=== PATIENT | male | born 1940 | race Hispanic/Latino ===

== ENCOUNTER 2017-07-20 20:31 | Emergency (ER) | payer MEDICARE ==
[2017-07-20 20:35] VITALS: BMI 22.4
[2017-07-20 20:41] VITALS: RESP 18; TEMP 97.9
--- NOTE | 2017-07-20 20:42 | ED PDOC ---
Arrival/HPI - General Historian: Patient <Johnny Huerta - Last Filed: 07/20/17 21:16> <Андрей Calero - Last Filed: 07/20/17 21:33> - General Chief Complaint: Foreign Body Time Seen by Provider: 07/20/17 20:42 - History of Present Illness Narrative History of Present Illness (Text): 07/20/17 20:42 76 y/o male, pmh including htn/cad/copd, allergic to sulfa, c/o silicone hearing aid stuck inside the lt. ear about 2 hours ago. Pt. stated that he chronically wears hearing aid, try to take off the hearing aid tonight, noticed the the silicone piece is inside the lt. auditory canal and request to have it removed, no dizziness or headache, no night sweat, no rash, no other medical or psychological complaints. (Johnny Huerta) Past Medical History - Provider Review Nursing Documentation Reviewed: Yes - Infectious Disease Hx of Infectious Diseases: None - Tetanus Immunization Tetanus Immunization: Unknown - Cardiac Hx Cardiac Arrhythmia: Yes Hx Congestive Heart Failure: Yes Hx Hypertension: Yes Hx Peripheral Edema: Yes - Pulmonary Hx Bronchitis: Yes Hx Chronic Obstructive Pulmonary Disease (COPD): Yes - Neurological Hx Neurological Disorder: Yes (SYNCOPE) Hx Dizziness: Yes Other/Comment: S/P FALL @N HOME 06/14/13 - HEENT Hx HEENT Disorder: Yes Hx Cataracts: Yes Hx Deafness: Yes Hx Glaucoma: Yes - Renal Hx Renal Disorder: No - Hematological/Oncological Hx Anemia: Yes - Musculoskeletal/Rheumatological Hx Musculoskeletal Disorders: Yes Hx Falls: Yes Hx Unsteady Gait: Yes - Gastrointestinal Hx Gastrointestinal Disorders: No - Genitourinary/Gynecological Hx Genitourinary Disorders: No - Psychiatric Hx Depression: Yes Hx Substance Use: No - Past Surgical History Past Surgical History: Unable to Obtain - Surgical History Hx Cardiac Catheterization: Yes Hx Coronary Stent: Yes (X2) - Anesthesia Hx Anesthesia Reactions: No Hx Malignant Hyperthermia: No - Suicidal Assessment Feels Threatened In Home Enviroment: No <Johnny Huerta - Last Filed: 07/20/17 21:16> Family/Social History - Physician Review Nursing Documentation Reviewed: Yes Family/Social History: Unknown Family HX Smoking Status: Current Some Days Smoker Hx Alcohol Use: Yes (STOPPED) Hx Substance Use: No Hx Substance Use Treatment: No <Johnny Huerta - Last Filed: 07/20/17 21:16> Allergies/Home Meds <Johnny Huerta Tata - Last Filed: 07/20/17 21:16> <Андрей Calero - Last Filed: 07/20/17 21:33> Allergies/Adverse Reactions: Allergies Sulfa (Sulfonamide Antibiotics) Allergy (Verified 07/20/17 20:34) ANAPHYLAXIS Home Medications: Home Meds Medication Instructions Recorded Confirmed Aspirin [Aspir 81] 81 mg PO DAILY 06/14/13 07/20/17 Amlodipine Besylate [Norvasc] 5 mg PO BID 06/19/13 07/20/17 Tiotropium [Spiriva] 18 mcg IH DAILY 06/19/13 07/20/17 Valsartan [Diovan] 320 mg PO DAILY 06/19/13 07/20/17 Timolol 0.5% Ophth [Timoptic 0.5% 1 drop OU BID 07/12/13 07/20/17 Ophth Soln] Review of Systems - Review of Systems Constitutional: absent: Fatigue, Fevers Eyes: absent: Vision Changes ENT: Other (Lt. ear foreign body). absent: Hearing Changes Respiratory: absent: SOB, Cough Cardiovascular: absent: Chest Pain Gastrointestinal: absent: Abdominal Pain, Nausea, Vomiting Musculoskeletal: absent: Arthralgias, Back Pain, Neck Pain Neurological: absent: Headache, Dizziness Psychiatric: absent: Anxiety, Depression <Johnny Huerta Tata - Last Filed: 07/20/17 21:16> Physical Exam Vital Signs Reviewed: Yes Temperature: Afebrile Pulse: Regular Respiratory Rate: Normal Appearance: Positive for: Well-Appearing, Non-Toxic, Comfortable Pain Distress: None Mental Status: Positive for: Alert and Oriented X 3 - Systems Exam Head: Present: Atraumatic, Normocephalic Pupils: Present: PERRL Extroacular Muscles: Present: EOMI Conjunctiva: Present: Normal Ears: Present: Other (Ears: lt. ear auditory canal noted to have white silicone hearing aid piece noted, no mastoid tenderness. ) Mouth: Present: Moist Mucous Membranes Neck: Present: Normal Range of Motion Respiratory/Chest: Present: Clear to Auscultation, Good Air Exchange. No: Respiratory Distress, Accessory Muscle Use Cardiovascular: Present: Regular Rate and Rhythm, Normal S1, S2. No: Murmurs Abdomen: Present: Normal Bowel Sounds. No: Tenderness, Distention, Peritoneal Signs Back: Present: Normal Inspection Upper Extremity: Present: Normal Inspection. No: Cyanosis, Edema Lower Extremity: Present: Normal Inspection. No: Edema Neurological: Present: GCS=15, Speech Normal, Motor Func Grossly Intact, Gait Normal, Memory Normal Skin: Present: Warm, Dry, Normal Color. No: Rashes Psychiatric: Present: Alert, Oriented x 3, Normal Insight, Normal Concentration <Johnny Huerta - Last Filed: 07/20/17 21:16> Vital Signs Temp Pulse Resp BP Pulse Ox 07/20/17 21:11 70 18 149/71 97 07/20/17 20:31 97.9 F 72 18 157/7 H 96 Medical Decision Making <Johnny Huerta - Last Filed: 07/20/17 21:16> <Андрей Calero - Last Filed: 07/20/17 21:33> ED Course and Treatment: 07/20/17 20:56 -Under the direct otoscope, I removed the white piece hearing aid silicone with the needle vegetable picker. I reexamined and no visible foreign bodies remaining. -I reexamined the both ear and show the following: Ears: bilateral TMs georgiana color and intact, bilateral auditory canals non erythematous and no abrasion, no mastoid tenderness, no visible foreign bodies, hearing grossly intact and equal. -Discharge home with education on follow up with your own pmd and ENT within 2 days, return to the ER for any new or worsening signs or symptoms. (Johnny Huerta) - PA / MANAGER ENVIRONMENTAL SERVICES / Resident Statement LILIANA has reviewed & agrees with the documentation as recorded. <Johnny Huerta - Last Filed: 07/20/17 21:16> - PA / MANAGER ENVIRONMENTAL SERVICES / Resident Statement LILIANA has reviewed & agrees with the documentation as recorded. LILIANA has examined the patient and agrees with the treatment plan. <Андрей Calero - Last Filed: 07/20/17 21:33> Disposition/Present on Arrival - Present on Arrival Any Indicators Present on Arrival: Yes History of DVT/PE: No History of Uncontrolled Diabetes: No Urinary Catheter: No History of Decub. Ulcer: No History Surgical Site Infection Following: None - Disposition Have Diagnosis and Disposition been Completed?: Yes Disposition Time: 21:01 Patient Plan: Discharge <Johnny Huerta - Last Filed: 07/20/17 21:16> <Андрей Calero - Last Filed: 07/20/17 21:33> - Disposition Diagnosis: Foreign body Disposition: HOME/ ROUTINE Condition: IMPROVED Additional Instructions: -Discharge home with education on follow up with your own pmd and ENT within 2 days, return to the ER for any new or worsening signs or symptoms. Referrals: [facility] [place] [Outside] - Follow up with primary George Dobbs DO [Staff Provider] - Follow up with primary
[2017-07-20 21:11] VITALS: BP 149/71; PULSE 70; O2SAT 97
== END 2017-07-20 21:13 | disposition home or self-care (01) ==
LOC: ED 20:31
DX: T16.2XXA Foreign body in left ear, initial encounter (principal); X58.XXXA Exposure to other specified factors, initial encounter; Y92.89 Other specified places as the place of occurrence of the external cause

== ENCOUNTER 2018-08-06 07:21 | Day surgery (SDC) | payer MEDICARE ==
[2018-08-06 07:53] VITALS: TEMP 98
[2018-08-06] MEDS ORDERED: Sodium Chloride 0.9% 1,000 ML IV SCH (08:30)
[2018-08-06] MEDS ORDERED: Propofol 10 mg/ml Inj (20 ML) ONE ×2 (08:31→08:43)
[2018-08-06] MEDS ORDERED: Lidocaine PF 2% (5 ml) Inj (For Cardiac Arrhy) ONE (08:31)
[2018-08-06 09:24] VITALS: RESP 17
[2018-08-06 10:15] VITALS: BP 153/67; PULSE 61; O2SAT 99
== END 2018-08-06 10:55 | disposition home or self-care (01) ==
LOC: ENDO 07:21
PROVIDERS: ATTEND Specialist
DX: D12.2 Benign neoplasm of ascending colon (principal); D12.4 Benign neoplasm of descending colon; K57.30 Diverticulosis of large intestine without perforation or abscess without bleeding; K55.21 Angiodysplasia of colon with hemorrhage; K64.8 Other hemorrhoids; K58.0 Irritable bowel syndrome with diarrhea; D50.9 Iron deficiency anemia, unspecified; K21.9 Gastro-esophageal reflux disease without esophagitis; I25.10 Atherosclerotic heart disease of native coronary artery without angina pectoris; J44.9 Chronic obstructive pulmonary disease, unspecified; I73.9 Peripheral vascular disease, unspecified; Z98.49 Cataract extraction status, unspecified eye; Z88.2 Allergy status to sulfonamides
CPT/HCPCS: 45380; 45385; 88305; J2704; J7030